=== PATIENT | female | born 1955 | race Caucasian/White ===

== ENCOUNTER 2018-09-01 15:05 | Emergency (ER) | payer BC ==
[2018-09-01 15:19] VITALS: BP 129/85
--- NOTE | 2018-09-01 15:58 | ED ---
Lower Extremity - HPI Summary HPI Summary: 63 yr old female with some localized swelling and pain in the superficial veins lateral left lower leg. She has redness as well. Her pain is mild. She had [employer] surgery last week for partial vulvectomy. She states the surgery was not successful as they could not find the cyst during the operation. She has not had fever. - History of Current Complaint Chief Complaint: UCLowerExtremity Stated Complaint: SPOT ON LEG Time Seen by Provider: 09/01/18 15:38 Pain Intensity: 2 - Allergies/Home Medications Allergies/Adverse Reactions: Allergies Allergy/AdvReac Type Severity Reaction Status Date / Time No Known Allergies Allergy Verified 09/01/18 15:19 Home Medications: Home Medications Ibuprofen 200 mg PO ONCE PRN 09/01/18 [History Confirmed 09/01/18] PMH/Surg Hx/FS Hx/Imm Hx Musculoskeletal History: Denies: Hx Osteoporosis - Cancer History Cancer Type, Location and Year: breast ca Hx Chemotherapy: Yes - BREAST 96 Hx Radiation Therapy: Yes - BREAST 96 - Surgical History Surgery Procedure, Year, and Place: HX OF LEFT BREAST CANCER WITH LUMPECTOMY. [employer] surgery 2019 Infectious Disease History: No Infectious Disease History: Reports: Traveled Outside the [place] in Last 30 Days - [place] - Family History Known Family History: Positive: None - Social History Occupation: Employed Full-time Alcohol Use: Daily Substance Use Type: Reports: None Smoking Status (MU): Never Smoked Tobacco Review of Systems Constitutional: Negative Positive: Other - left lower posterior leg All Other Systems Reviewed And Are Negative: Yes Physical Exam Triage Information Reviewed: Yes Vital Signs On Initial Exam: Initial Vitals Temp Pulse Resp BP Pulse Ox 97.7 F 86 18 129/85 100 09/01/18 15:15 09/01/18 15:15 09/01/18 15:15 09/01/18 15:15 09/01/18 15:15 Vital Signs Reviewed: Yes Appearance: Positive: Well-Appearing, No Pain Distress Skin: Positive: Warm, Skin Color Reflects Adequate Perfusion Head/Face: Positive: Normal Head/Face Inspection Eyes: Positive: EOMI ENT: Positive: Normal ENT inspection Neck: Positive: Nontender Respiratory/Lung Sounds: Positive: Clear to Auscultation, Breath Sounds Present Cardiovascular: Positive: RRR. Negative: Murmur Abdomen Description: Positive: Nontender Musculoskeletal: Positive: Strength/ROM Intact, Other - left lateral lower leg with mild erythema and tenderness with swollen superficial varicose veins. Neurological: Positive: Sensory/Motor Intact, Alert, Oriented to Person Place, Time, CN Intact II-III, Normal Gait, Speech Normal Psychiatric: Positive: Normal Diagnostics - Vital Signs Vital Signs Temp Pulse Resp BP Pulse Ox 09/01/18 15:15 97.7 F 86 18 129/85 100 - Laboratory Lab Statement: Any lab studies that have been ordered have been reviewed, and results considered in the medical decision making process. - Additional Comments Diagnostic Additional Comments: left lower extremity venous doppler: SUperficial thrombophlebitis. Lateral left calf area. Lower Extremity Course/Dx - Course Course Of Treatment: 63 yr old with left lower extremity superficial thrombophelbitis in a very localized area. The patient will go home to follow up with Dr Ze Doss tomorrow. I have called Dr Doss's office, and spoken with his nurse, and they asked me to fax the report to their office. I have done this. Patient being put on motrin. 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 - Diagnoses Provider Diagnoses: Thrombophlebitis leg Discharge - Sign-Out/Discharge Documenting (check all that apply): Patient Departure All imaging exams completed and their final reports reviewed: Yes - Discharge Plan Condition: Good Disposition: HOME Prescriptions: Ibuprofen TAB* [Motrin TAB* 600 MG] 600 mg PO Q8H PRN #20 tab PRN Reason: Pain Patient Education Materials: Superficial Thrombophlebitis (ED) Referrals: Ze Doss MD [Primary Care Provider] - 1 Day - Billing Disposition and Condition Condition: GOOD Disposition: Home
== END 2018-09-01 17:27 | disposition home or self-care (01) ==
LOC: UCEAST 15:05
DX: I80.02 Phlebitis and thrombophlebitis of superficial vessels of left lower extremity (principal); Z85.3 Personal history of malignant neoplasm of breast
CPT/HCPCS: 99212; G0463

== ENCOUNTER 2019-04-02 16:27 | Emergency (ER) | payer MEDICARE, BC ==
--- OUTSIDE RECORDS SUMMARY | 2019-04-02 16:36 | XMS REPORT | Continuity of Care Document ---
:1955 External Reference #:[id number] Author Name Ze Doss M.D. (transmitted by agent of provider Shena Cohn ) Address [address], [place] [address] Care Team Providers Name Role Phone Ze Doss III, MD - Internal Care Team Information Scrubber System Attendant [phone] Medicine Trevor Coker MD - Obstetrics & Care Team Information Scrubber System Attendant [phone] Gynecology Problems Description No Information Available Social History Type Date Description Comments Sex Unknown Tobacco Use Start: Unknown Never Smoked Cigarettes Smoking Status Reviewed: 02/02/19 Never Smoked Cigarettes ETOH Use Drinks 1 Alcoholic Beverage Per Day Tobacco Use Start: Unknown Patient has never smoked Exercise Exercises sporadically walking, and Type/Frequency exercising at home. Increasing now that she has moved to [place] and retired Allergies, Adverse Reactions, Alerts Description No Known Drug Allergies Medications Active Medications SIG Qnty Indications Ordering Provider Date Amoxicillin/Clavulanat 1 by mouth 14tabs N64.4 Ze Doss, 2018 e Potassium twice a day M.D. 875-125mg Tablets Centrum Silver Ultra 1 by mouth 90tabs Juve Bailey, 05/01/2016 Womens every day M.D. Tablets Vitamin D-3 1 tab daily Juve Bailey, 05/01/2016 1000Unit M.D. Capsules Medications Administered in Office Medication SIG Qnty Indications Ordering Provider Date Influenza,Unspecified Unknown 05/01/2016 Injection Influenza,Unspecified Unknown 01/28/2016 Injection Immunizations CPT Code Status Date Vaccine Lot # [id number] Given 01/02/2019 Influenza Virus Vaccine, Quadrivalent, Split, Preservative Free [id number] Given 01/15/2018 Influenza Virus Vaccine, Quadrivalent, Split, Preservative Free [id number] Given 06/04/2017 Tdap - Tetanus/Diptheria/Acellular Pertussis [id number] Given 01/03/2017 Influenza Virus Vaccine, Quadrivalent, Split, Preservative Free 75070 Given 04/01/2014 Varicella (Chicken Pox) Immunization Vital Signs Date Vital Result Comment 02/02/2019 3:22pm Height 67.7 inches 5'7.70" Weight 165.00 lb Heart Rate 66 /min BP Systolic Sitting 129 mmHg BP Diastolic Sitting 79 mmHg BMI (Body Mass Index) 25.3 kg/m2 11/28/2018 2:02pm Height 67.7 inches 5'7.70" Weight 161.00 lb Heart Rate 69 /min BP Systolic 134 mmHg BP Diastolic 91 mmHg O2 % BldC Oximetry 98 % BMI (Body Mass Index) 24.7 kg/m2 Results Description No Information Available Procedures Date Code Description Status 07/18/2018 [id number] Mammogram Completed 07/17/2017 [id number] Bone Mineral Density Test Completed 07/17/2017 [id number] Mammogram Completed 08/16/2016 [id number] Colonoscopy Completed 07/16/2016 [id number] Mammogram Completed 04/01/2013 [id number] Colonoscopy Completed Medical Devices Description No Information Available Encounters Type Date Location Provider Dx Diagnosis Office Visit 11/28/[address] 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 11/28/2018 N90.7 Vulvar cyst Trevor Coker MD Plan of Treatment 02/02/2019 - Ze Doss M.D.N64.4 MastodyniaNew Medication:Amoxicillin/ Clavulanate Potassium 875-125 mg - 1 by mouth twice a dayComments:1 week hx L breast discomfort around the nipple area with some serous discharge. No focal mass or induration on exam. Will Rx for possible mastitis with a course of antibiotics, but further eval witha breast ultrasound advised if sx fail to resolve or increased sx noted. Mammogram in June okFoll up:call next week to report any changes Functional Status Description No Information Available Mental Status Description No Information Available Referrals Description No Information Available
[2019-04-02 16:42] VITALS: BP 138/80
--- NOTE | 2019-04-02 17:34 | UC ---
Skin Complaint HPI - HPI Summary HPI Summary: 64-year-old woman comes in with chief complaint of a lesion in her skin on the right middle finger. Today she noticed it. No pain she does not remember having it there before. It's dark and slightly raised and on the pad of the right distal middle finger. The fevers no chills feels well. No drainage. No known trauma. Has not been gardening recently. Not on any blood thinners. - History of Current Complaint Chief Complaint: UCUpperExtremity Time Seen by Provider: 04/02/19 17:25 Stated Complaint: FINGER ABRASION Pain Intensity: 0 - Allergy/Home Medications Allergies/Adverse Reactions: Allergies Allergy/AdvReac Type Severity Reaction Status Date / Time No Known Allergies Allergy Verified 04/02/19 16:42 Home Medications: Home Medications Multivitamin [Multivitamins] 1 tab PO DAILY 04/02/19 [History Confirmed 04/02/19 ] PMH/Surg Hx/FS Hx/Imm Hx Previously Healthy: Yes - Surgical History Surgical History: Yes Surgery Procedure, Year, and Place: HX OF LEFT BREAST CANCER WITH LUMPECTOMY. VULVA - CYST REMOVED - Family History Known Family History: Positive: None - Social History Alcohol Use: Daily Alcohol Amount: wine Substance Use Type: None Smoking Status (MU): Never Smoked Tobacco Review of Systems All Other Systems Reviewed And Are Negative: Yes Constitutional: Positive: Negative Skin: Positive: Other - SEE HPI Eyes: Positive: Negative ENT: Positive: Negative Respiratory: Positive: Negative Cardiovascular: Positive: Negative Gastrointestinal: Positive: Negative Motor: Positive: Negative Neurovascular: Positive: Negative Musculoskeletal: Positive: Negative Neurological: Positive: Negative Psychological: Positive: Negative Is Patient Immunocompromised?: No Physical Exam Triage Information Reviewed: Yes Appearance: Well-Appearing, No Pain Distress, Well-Nourished Vital Signs: Initial Vital Signs Temp 98.1 F 04/02/19 16:37 Pulse 70 04/02/19 16:37 Resp 16 04/02/19 16:37 BP 138/80 04/02/19 16:37 Pulse Ox 100 04/02/19 16:37 Vital Signs Reviewed: Yes Eye Exam: Normal Eyes: Positive: Conjunctiva Clear Neck: Positive: Supple Respiratory: Positive: No respiratory distress Musculoskeletal: Positive: Strength Intact, ROM Intact Neurological: Positive: Alert, Muscle Tone Normal Psychological: Positive: Age Appropriate Behavior Skin: Positive: Other - On the palmar aspect of the right third middle finger distal part of the phalanx there is a 5 mm x 4 mm slightly raised nonblanching ecchymotic lesion. Most consistent with a blood blister. There is slight amount of proximal erythema a streak of 2 mm x 4 mm. No drainage nontender to palpation. Normal capillary refill in the rest of the finger normal sensation for range of motion. Course/Dx - Course Course Of Treatment: Skin lesion is most consistent with a blood blister most likely secondary to a trauma the patient was not aware of. Is not painful there is normal capillary refill no sensation normal range of motion full-strength. Patient was worried about the possibility of infection. Small amount of erythema adjacent to it which I do not believe at this time is infection. Discussed with the patient and I wrote a prescription for Keflex to be started if it does appear to be infected. Reevaluate if worse or any questions or concerns. - Diagnoses Provider Diagnosis: Skin lesion of hand Discharge ED - Sign-Out/Discharge Documenting (check all that apply): Patient Departure All imaging exams completed and their final reports reviewed: No Studies - Discharge Plan Condition: Stable Disposition: HOME Prescriptions: Cephalexin CAP* [Keflex CAP*] 500 mg PO TID #21 cap Patient Education Materials: Purpura (ED) Referrals: Ze Doss MD [Primary Care Provider] - Additional Instructions: FOLLOW UP WITH YOUR DOCTOR IF NOT COMPLETELY IMPROVED. GET REEVALUATED SOONER IF NOT IMPROVED OR WORSE OR ANY QUESTIONS OR CONCERNS. - Billing Disposition and Condition Condition: STABLE Disposition: Home
== END 2019-04-02 17:37 | disposition home or self-care (01) ==
LOC: UCEAST 16:27
DX: L98.9 Disorder of the skin and subcutaneous tissue, unspecified (principal)
CPT/HCPCS: 99212; G0463